=== PATIENT | male | born 1970 | race Two or more races ===

== ENCOUNTER 2025-07-04 20:49 | Inpatient (IN) | payer MEDICAID, OTHER ==
[~2025-07-04] VITALS: Ht 157.5 cm; Wt 69.2 kg
[2025-07-04 22:08] LABS: Hemoglobin 13.2 g/dL (13.5-17.5); Mean Corpuscular Hemoglobin 22.5 pg (28.0-32.0); Nucleated Red Blood Cells % 0.3 %
[2025-07-04 22:09] LABS: Hematocrit 38.5 % (41.0-53.0); Mean Corpuscular Volume 65.8 fL (80.0-100.0)
[2025-07-04 22:10] LABS: Chloride 105 mmol/L (98-107); Potassium 3.7 mmol/L (3.5-5.1); Sodium 141 mmol/L (136-145)
[2025-07-04 22:11] LABS: Anion Gap 11 (5-15); Carbon Dioxide 25 mmol/L (20-31)
[2025-07-04 22:12] LABS: Calcium 9.1 mg/dL (8.7-10.4)
[2025-07-04 22:16] LABS: BUN/Creatinine Ratio 19.3 (10.0-20.0); Blood Urea Nitrogen 16 mg/dL (9-23)
--- NOTE | 2025-07-04 22:17 | DVH ---
EXAM: CT HEAD WITHOUT CONTRAST INDICATION: New onset worsening headache TECHNIQUE: CT of the head without intravenous contrast. Radiation Dose Information: CT Dose: CTDI volume is 52.21 mGy. Dose-length product is 924.58 mGy*cm The dose indicators for CT are the volume Computed Tomography (CT) Dose Index (CTDIvol) and the Dose Length Product (DLP), and are measured in units of mGy and mGy-cm, respectively. These indicators are not patient dose, but values generated from the CT scanner acquisition factors. The report includes radiation exposure data for exposures received during this examination. COMPARISON: None FINDINGS: There is no evidence of acute intracranial hemorrhage, extra-axial collection, mass effect, midline s hift, herniation or hydrocephalus. The ventricles, sulci and cisterns are age appropriate. The miller-white differentiation is intact. The visualized paranasal sinuses and mastoid air cells are clear. The surrounding soft tissues and osseous structures are unremarkable. IMPRESSION: 1. No acute intracranial abnormality.
[2025-07-04 22:21] LABS: Glucose 145 mg/dL (74-106)
[2025-07-04] MEDS: SODIUM CHLORIDE 0.9% 1,000 ML IV ONE (22:45)
[2025-07-04] MEDS: KETOROLAC TROMETH 30 MG/ML 1ML VIAL IV ONE (22:45)
[2025-07-04] MEDS: MECLIZINE HCL 25 MG TAB PO ONE (22:45)
[2025-07-04] MEDS: METOCLOPRAMIDE HCL 5MG/ml INJ 2ml VIAL IV ONE (22:45)
--- NOTE | 2025-07-04 22:51 | ED.PDOC ---
HPI (NEURO) HPI Comments 54-year-old Citizen Of [place]-speaking male who presents for chief complaint of headache, with the associated blurry vision and dizziness. Patient reports on having headache for 1 month, with a additional onset of blurry vision and dizziness over the past week. Endorses on unprovoked and atraumatic onset. Denial of any speech changes, facial droop, or further associated symptoms or modifying factors at this time. REVIEW OF SYSTEMS: General: No fever, no chills, HEENT: Blurry vision. No neck pain. Cardiac: No chest pain. No palpitations. Lungs: No shortness of breath, GI: No abdominal pain, no vomiting Musculoskeletal: No joint pain , no back pain Skin: No rash, no wound Neuro: Dizziness. Headache. No weakness PHYSICAL EXAM: General: Awake, alert and oriented. No acute distress. Patient smiles and laughs during evaluation. Skin: Skin in warm, dry and intact without rashes or lesions. HEENT: The head is normocephalic and atraumatic. Conjunctivae are clear without exudates or hemorrhage. Sclera is non-icteric. Intact. PERRLA. Neck: Normal range of motion. No JVD. Cardiac: Regular rate Respiratory: No signs of respiratory distress. No Stridor. Extremities: Upper and lower extremities are atraumatic in appearance without deformity. Neurological: The patient is awake, alert and oriented to person, place, and time with normal speech. Speech is clear. There is no facial asymmetry. Patient has difficulty balancing on each leg, individually. Normal [id number] test. Normal gait. + Romberg Psychiatric: Appropriate mood and affect. Good judgement and insight. Chief Complaint: Headache Time Seen by MD: 21:01 Reviewed Notes: Nurses Notes, Medications, Allergies Information Source: Patient Mode of Arrival: Ambulatory Past Medical History PAST MEDICAL HISTORY: Denies Surgical History: Denies all surgeries Social History Smoker: Non-Smoker Alcohol: Denies ETOH Use Drugs: Denies Drug Use Lives In: Home Was a procedure done? Was a procedure done?: No Differential Diagnosis (SZ) Headache: Cluster, Migraine, CVA, Epidural Hemorrhage, Intracerebral Hemorrhage, Subarachnoid Hemorrhage, Subdural Hemorrhage, Meningitis, Sinusitis X-Ray, Labs, Meds, VS Vital Signs Date Time Temp Pulse Resp B/P (MAP) Pulse Ox O2 Delivery O2 Flow Rate FiO2 07/04/25 20:51 98.2 80 14 123/76 98 98.2 Lab Test 07/05/25 01:37 07/04/25 22:40 07/04/25 21:49 Range/Units White Blood Count 7.7 8.6 4.4-10.8 10^3/uL Red Blood Count 5.56 5.85 4.5-5.90 10^6/uL Hemoglobin 12.2 L 13.2 L 13.5-17.5 g/dL Hematocrit 37.2 L 38.5 L 41.0-53.0 % Mean Corpuscular Volume 66.9 L 65.8 L 80.0-100.0 fL Mean Corpuscular Hemoglobin 21.9 L 22.5 L 28.0-32.0 pg Mean Corpuscular Hemoglobin Concent 32.7 34.2 32.0-36.0 g/dL Red Cell Distribution Width 15.8 H 15.5 H 11.8-14.3 % Platelet Count 299 335 140-450 10^3/uL Mean Platelet Volume 7.9 7.7 6.9-10.8 fL Neutrophils (%) (Auto) 61.5 63.5 37.0-80.0 % Lymphocytes (%) (Auto) 28.2 26.6 10.0-50.0 % Monocytes (%) (Auto) 7.7 6.6 0.0-12.0 % Eosinophils (%) (Auto) 2.0 2.4 0.0-7.0 % Basophils (%) (Auto) 0.6 0.9 0.0-2.0 % Neutrophils # (Auto) 4.7 5.5 1.6-8.6 10 ^3/uL Lymphocytes # (Auto) 2.2 2.3 0.4-5.4 10 ^3/uL Monocytes # (Auto) 0.6 0.6 0-1.3 10 ^3/uL Eosinophils # (Auto) 0.2 0.2 0-0.8 10 ^3/uL Basophils # (Auto) 0 0.1 0-0.2 10 ^3/uL Nucleated Red Blood Cells 0.1 0.3 % Haptoglobin 62 29-370 mg/dL Prothrombin Time 10.3 9.3-11.8 sec Prothrombin Time INR 0.97 0.9-1.15 Activated Partial Thromboplast Time 23.8 L 24.5-34.5 SEC Sodium Level 140 141 136-145 mmol/L Potassium Level 3.7 3.7 3.5-5.1 mmol/L Chloride Level 109 H 105 98-107 mmol/L Carbon Dioxide Level 23 25 20-31 mmol/L Anion Gap 8 11 5-15 Blood Urea Nitrogen 16 16 9-23 mg/dL Creatinine 0.74 0.83 0.700-1.30 mg/dL Glomerular Filtration Rate Calc 109 105 >90 mL/min BUN/Creatinine Ratio 21.6 H 19.3 10.0-20.0 Serum Glucose 109 H 145 H 74-106 mg/dL Lactic Acid Level 0.9 0.4-2.0 mmol/L Calcium Level 8.4 L 9.1 8.7-10.4 mg/dL Ferritin 136.2 22-322 ng/mL Vitamin B12 Level > 4000 H 211-911 pg/mL Vitamin D 25-Hydroxy 40.1 30.0-100 ng/mL Folic Acid 13.92 >5.38 ng/mL Phosphorus Level 2.4 2.4-5.1 mg/dL Total Bilirubin 0.6 0.2-1.0 mg/dL Direct Bilirubin 0.2 <0.3 mg/dL Aspartate Amino Transferase (AST) 32 13-40 U/L Alanine Aminotransferase (ALT) 41 H 7-40 U/L Alkaline Phosphatase 65 46-116 U/L Troponin I High Sensitivity < 3 L < 3 L </=54 ng/L C-Reactive Protein High Sensitivity 0.06 <1.0 mg/dL Total Protein 7.5 5.7-8.2 g/dL Albumin 4.4 3.2-4.8 g/dL Triglycerides Level 407 H < 150 mg/dL Cholesterol Level 141 < 200 mg/dL LDL Cholesterol < 100 mg/dL HDL Cholesterol 35 L 40-59 mg/dL Lipase 53 12-53 U/L Platelet Estimate Adequate Hypochromasia (manual) Moderate Microcytosis Marked Hemoglobin A1c 5.5 <5.7 % A1C Iron Level 46 L 65-175 ug/dL Total Iron Binding Capacity 292 250-425 ug/dL Percent Iron Saturation 15.8 L 20-55 % Lactate Dehydrogenase 230 120-246 U/L [facility] [id number] [facility] [address] Ph: [phone] DIAGNOSTIC IMAGING Diagnostic Imaging Report : [id number] Signed PATIENT: LISA SHARP ACCT: [id number] UNIT: [id number] : 1970 LOC: ER ROOM / BED: / AGE / SEX: 54 / M ADM STATUS: REG ER SERVICE 34 ORDERING PHYSICIAN: DMITRY RAI MD PROCEDURE(s): HWOCT - HEAD WITHOUT CONTRAST REASON: New onset worsening headache ORDER NUMBER(s): [id number], ACCESSION NUMBER(s): [id number] EXAM: CT HEAD WITHOUT CONTRAST INDICATION: New onset worsening headache TECHNIQUE: CT of the head without intravenous contrast. Radiation Dose Information: CT Dose: CTDI volume is 52.21 mGy. Dose-length product is 924.58 mGy*cm The dose indicators for CT are the volume Computed Tomography (CT) Dose Index (CTDIvol) and the Dose Length Product (DLP), and are measured in units of mGy and mGy-cm, respectively. These indicators are not patient dose, but values generated from the CT scanner acquisition factors. The report includes radiation exposure data for exposures received during this examination. COMPARISON: None FINDINGS: There is no evidence of acute intracranial hemorrhage, extra-axial collection, mass effect, midline shift, herniation or hydrocephalus. The ventricles, sulci and cisterns are age appropriate. The miller-white differentiation is intact. The visualized paranasal sinuses and mastoid air cells are clear. The surrounding soft tissues and osseous structures are unremarkable. IMPRESSION: 1. No acute intracranial abnormality. ATED BY: ZANDER SHUKLA MD DICTATED DATE/TIME: 07/04/252213 SIGNED BY: ZANDER SHUKLA MD SIGNED DATE/TIME: 07/04/252213 CC: Time of 1ST Reevaluation: 00:44 Reevaluation 1ST: Unchanged Patient Education/Counseling: Other Family Education/Counseling: No Family Present Departure 1 Departure Time of Disposition: 00:44 Impression: Primary Impression: Headache Additional Impression: Dizziness Disposition: ADMITTED INPATIENT Condition: Stable e-Prescriptions Ibuprofen (Ibuprofen) 600 Mg Tab 1 TAB PO TID PRN, #15 TAB Prov: DMITRY RAI MD 07/05/25 Acetaminophen (Acetaminophen Er) 650 Mg Tab 650 MG PO TIDPRN PRN, #15 TAB Prov: DMITRY RAI MD 07/05/25 Discharged With: Self Comments Patient admitted to hospitalist service for further treatment, evaluation and monitoring. Critical Care Note Critical Care Time?: No Stability Stability form required: No Heart Score Heart Score: Heart Score Response (Comments) Value History N/A 0 EKG N/A 0 Age N/A 0 Risk Factors N/A 0 Troponin N/A 0 Total 0 I personally scribed for DMITRY RAI MD ([email or web address]) on 07/04/25 at 22:51. Electronically submitted by Theodore Jarvis ([email or web address]). I personally scribed for DMITRY RAI MD ([email or web address]) on 07/05/25 at 05:41. Electronically submitted by Theodore Jarvis ([email or web address]). DMITRY RAI MD Jul 04, 2025 22:51
[2025-07-05] MEDS ORDERED: IBUP-1454 PO (00:45)
[2025-07-05] MEDS ORDERED: ACET650T12 PO (00:45)
[2025-07-05 01:37] LABS: Albumin 4.4 g/dL (3.2-4.8); Alkaline Phosphatase 65 U/L (46-116); Bilirubin, Direct 0.2 mg/dL (<0.3); Cholesterol 141 mg/dL (< 200); Total Protein 7.5 g/dL (5.7-8.2)
[2025-07-05 01:37] LABS: Total Iron Binding Capacity 292.0 ug/dL (250-425)
[2025-07-05 01:38] LABS: Bilirubin, Total 0.6 mg/dL (0.2-1.0)
[2025-07-05 01:39] LABS: Iron 46.0 ug/dL (65-175)
[2025-07-05 01:40] LABS: Alanine Aminotransferase 41 U/L (7-40); HDL Cholesterol 35 mg/dL (40-59); Triglycerides 407 mg/dL (< 150)
[2025-07-05] MEDS ORDERED: ONDANSETRON HCL 4 MG/2 ML VIAL IV PRN (01:45)
[2025-07-05] MEDS ORDERED: MORPHINE SULFATE INJ 2 MG/ml SYRG IV PRN (01:45)
[2025-07-05] MEDS: ENOXAPARIN SOD 40 MG/0.4 ML SYRINGE SC SCH (01:45)
[2025-07-05] MEDS ORDERED: ACETAMINOPHEN 325 MG TAB PO PRN ×2 (01:45→09:00)
[2025-07-05 01:50] LABS: Lipase 53 U/L (12-53)
[2025-07-05 02:06] LABS: Hemoglobin 12.2 g/dL (13.5-17.5); Nucleated Red Blood Cells % 0.1 %
[2025-07-05 02:08] LABS: Hematocrit 37.2 % (41.0-53.0); Mean Corpuscular Hemoglobin 21.9 pg (28.0-32.0); Mean Corpuscular Volume 66.9 fL (80.0-100.0)
[2025-07-05 02:09] LABS: Potassium 3.7 mmol/L (3.5-5.1); Sodium 140 mmol/L (136-145)
[2025-07-05 02:10] LABS: Anion Gap 8 (5-15); Carbon Dioxide 23 mmol/L (20-31); Chloride 109 mmol/L (98-107)
[2025-07-05 02:11] LABS: Calcium 8.4 mg/dL (8.7-10.4); INR 0.97 (0.9-1.15); Partial Thromboplastin Time 23.8 SEC (24.5-34.5); Prothrombin Time 10.3 sec (9.3-11.8)
[2025-07-05 02:15] LABS: BUN/Creatinine Ratio 21.6 (10.0-20.0); Blood Urea Nitrogen 16 mg/dL (9-23)
[2025-07-05 02:16] LABS: Glucose 109 mg/dL (74-106)
[2025-07-05 02:18] LABS: Ferritin 136.2 ng/mL (22-322)
[2025-07-05] MEDS: ATORVASTATIN 20 MG TAB PO ONE (02:22)
--- NOTE | 2025-07-05 02:24 | DVHHPRES ---
History of Present Illness Resident Creating Document: LUCIOCarmenFATOU RESIDENT History of Present Illness This is a 54-year-old male with no significant past medical history, presented to ER with chief complain of headache, associated with dizziness, blurry vision, nausea, vomiting. He reports headache began gradually, is located in the occipital region, described as pressure-like pain, with a severity of 8/10. The pain is intermittent, radiating to right ear and associated with tingling sensation of the right side of face. He also complained of associated nausea, vomiting, he vomited once yesterday, vomitus contained food contents, no blood in vomitus. He also complained of associated dizziness and loss of balance, associated with fall 1 week ago. During that fall he hit his head. He also complained of blurred vision in bilateral eyes. He denies tearing, pain, redness of eyes, aura, photophobia, fever, chills, neck pain. Denies any sick contacts or recent travel. PMHx: Fatty liver disease PSHx: No significant surgical history Family history: Diabetes mellitus in brother Social history: Denies smoking, alcohol, recreational drug use. Lives in home with family. Next of kin Home medication: As needed Tylenol for headache Allergic history: No known allergies Hepatobiliary: Other (Fatty liver disease) Smoke: No ALCOHOL: none Drugs: None Lives: with Family Domestic Violence: Neg Review of Systems Eyes: Vision change Cardiovascular: Lt Headedness Gastrointestinal: Nausea, Vomiting Neurological: Other (Dizziness, loss of balance) Allergies: Coded Allergies: NO KNOWN ALLERGIES (Unverified , 07/04/25) Exam Vital Signs Vital Signs Date Time Temp Pulse Resp B/P (MAP) Pulse Ox O2 Delivery O2 Flow Rate FiO2 07/04/25 20:51 98.2 80 14 123/76 98 98.2 Exam Patient lying in bed, in no acute distress General: Lucid, afebrile, mucosae are moist Cardiovascular: Normal S1 and S2. No murmurs, gallops or rubs Respiratory: Normal ventilation mechanics. Clear lung sounds on auscultation Abdomen: Soft, nontender, no organomegaly, normal bowel sounds MSK/skin: Mobilizes 4 limbs. Skin is dry and warm Neurological: Oriented in 3 spheres. No motor no sensitive deficits. Pupils are isocoric and reactive. Sensitize Romberg positive General Appearance: Alert, Oriented X3, Cooperative HEENT: Atraumatic, PERRLA Respiratory: Clear to auscultation, Normal air movement Cardiovascular: Regular rate, Normal S1, Normal S2, No murmurs Abdominal: Normal bowel sounds, Soft, No tenderness, No hepatospenomegaly Extremities: No clubbing, No cyanosis, No edema Skin: No rashes, No breakdown Neuro: Normal gait, Normal speech, Strength at 5/5 X4 ext, Normal tone, Sensation intact, Cranial nerves 3-12 NL, Reflexes 2+, Other (Romberg sign positive) Psych/Mental Status: Mental status NL, Mood NL Labs/Xrays Labs Test 07/05/25 01:37 07/04/25 22:40 07/04/25 21:49 Range/Units Phosphorus Level 2.4 2.4-5.1 mg/dL Total Bilirubin 0.6 0.2-1.0 mg/dL Direct Bilirubin 0.2 <0.3 mg/dL Aspartate Amino Transferase (AST) 32 13-40 U/L Alanine Aminotransferase (ALT) 41 H 7-40 U/L Alkaline Phosphatase 65 46-116 U/L Troponin I High Sensitivity < 3 L </=54 ng/L C-Reactive Protein High Sensitivity 0.06 <1.0 mg/dL Total Protein 7.5 5.7-8.2 g/dL Albumin 4.4 3.2-4.8 g/dL Triglycerides Level 407 H < 150 mg/dL Cholesterol Level 141 < 200 mg/dL LDL Cholesterol < 100 mg/dL HDL Cholesterol 35 L 40-59 mg/dL Lipase 53 12-53 U/L White Blood Count 8.6 4.4-10.8 10^3/uL Red Blood Count 5.85 4.5-5.90 10^6/uL Hemoglobin 13.2 L 13.5-17.5 g/dL Hematocrit 38.5 L 41.0-53.0 % Mean Corpuscular Volume 65.8 L 80.0-100.0 fL Mean Corpuscular Hemoglobin 22.5 L 28.0-32.0 pg Mean Corpuscular Hemoglobin Concent 34.2 32.0-36.0 g/dL Red Cell Distribution Width 15.5 H 11.8-14.3 % Platelet Count 335 140-450 10^3/uL Mean Platelet Volume 7.7 6.9-10.8 fL Neutrophils (%) (Auto) 63.5 37.0-80.0 % Lymphocytes (%) (Auto) 26.6 10.0-50.0 % Monocytes (%) (Auto) 6.6 0.0-12.0 % Eosinophils (%) (Auto) 2.4 0.0-7.0 % Basophils (%) (Auto) 0.9 0.0-2.0 % Neutrophils # (Auto) 5.5 1.6-8.6 10 ^3/uL Lymphocytes # (Auto) 2.3 0.4-5.4 10 ^3/uL Monocytes # (Auto) 0.6 0-1.3 10 ^3/uL Eosinophils # (Auto) 0.2 0-0.8 10 ^3/uL Basophils # (Auto) 0.1 0-0.2 10 ^3/uL Nucleated Red Blood Cells 0.3 % Platelet Estimate Adequate Hypochromasia (manual) Moderate Microcytosis Marked Sodium Level 141 136-145 mmol/L Potassium Level 3.7 3.5-5.1 mmol/L Chloride Level 105 98-107 mmol/L Carbon Dioxide Level 25 20-31 mmol/L Anion Gap 11 5-15 Blood Urea Nitrogen 16 9-23 mg/dL Creatinine 0.83 0.700-1.30 mg/dL Glomerular Filtration Rate Calc 105 >90 mL/min BUN/Creatinine Ratio 19.3 10.0-20.0 Serum Glucose 145 H 74-106 mg/dL Hemoglobin A1c 5.5 <5.7 % A1C Calcium Level 9.1 8.7-10.4 mg/dL Iron Level 46 L 65-175 ug/dL Total Iron Binding Capacity 292 250-425 ug/dL Percent Iron Saturation 15.8 L 20-55 % Lactate Dehydrogenase 230 120-246 U/L SEPSIS Sepsis Screen Date sepsis recognized/suspect: Jul 04, 2025 Time Sepsis recognized/suspect: 2053 Recent Procedure: No On Antibiotic Therapy: No Respiratory Rate >20: No Heart Rate >90: No Temp<36 C (96.8 F) or >38.3 C: No SBP <90 or MAP <65 mmHG: No New Acute Mental Status Change: No Is the patient on CPAP, BIPAP,: No Physician Orders Electrocardigram (07/04/25 21:35) Head Without Contrast (07/04/25 21:35) Electrocardigram (07/04/25 22:35) Electrocardigram (07/05/25 00:35) Ferritin (07/05/25 00:59) Haptoglobin (07/05/25 00:59) Folate (Folic Acid) (07/05/25 00:59) Vitamin B12 (07/05/25 00:59) PTPTT (07/05/25 00:59) Drug Screen (07/05/25 00:59) Vitamin D, 25-Hydroxy (07/05/25 00:59) Lactic Acid W/ Reflex Order (07/05/25 01:14) Complete Blood Count (07/05/25 04:00) Basic Metabolic Panel (07/05/25 04:00) Admit (07/05/25 01:42) Allergies (07/05/25 01:42) Code Status (07/05/25 01:42) Acetaminophen Tablet (Tylenol Tablet) (07/05/25 01:45) Ondansetron Hcl (Zofran) (07/05/25 01:45) Multiple Vitamin Tablet (Mvi Tab) (07/05/25 10:00) Morphine Sulfate Injection (07/05/25 01:45) Lovenox 40mg (07/05/25 01:45) Oxygen By Nasal Cannula (07/05/25 01:42) Stat Ekg For Chest Pain (07/05/25 01:42) Notify Md Of Changes From Base (07/05/25 01:42) Metal Template Maker For 24 Hours (07/05/25 01:42) Emergency Dysrhythmia Protocol (07/05/25 01:42) Rhythm Strips Once Every Shift (07/05/25 01:42) Electrocardigram (07/05/25 01:42) Electrocardigram (07/05/25 02:42) Electrocardigram (07/05/25 04:42) Vital Signs Date Time Temp Pulse Resp B/P (MAP) Pulse Ox O2 Delivery O2 Flow Rate FiO2 07/04/25 20:51 98.2 80 14 123/76 98 98.2 Laboratory Tests Test 07/04/25 21:49 07/05/25 01:37 White Blood Count 8.6 10^3/uL (4.4-10.8) Lactic Acid Level Pending Medications Medications Dose Ordered Sig/Deshawn Route Start Time Stop Time Status Last Admin Dose Admin Ketorolac Tromethamine 30 mg ONCE ONCE IV 07/04/25 22:45 07/04/25 22:46 DC 07/04/25 22:45 30 MG Meclizine HCl 50 mg ONCE ONCE PO 07/04/25 22:45 07/04/25 22:46 DC 07/04/25 22:45 50 MG Metoclopramide HCl 10 mg ONCE ONCE IV 07/04/25 22:45 07/04/25 22:46 DC 07/04/25 22:45 10 MG Sodium Chloride 1,000 ml @ 1,000 mls/hr Q1H ONCE IV 07/04/25 22:45 07/04/25 23:44 DC 07/04/25 22:45 1,000 MLS/HR Assessment/Plan Assessment/Plan TIA Hemorrhagic stroke ruled out CT head revealed no acute abnormality EKG ordered Echocardiogram, Doppler ultrasound carotid ordered Monitor on telemetry P.o. aspirin 81 mg, atorvastatin 40 mg Questionable Vestibular neuritis Meclizine 50mg BID PRN Metabolic syndrome Hypertriglyceridemia Low HDL 3 on 5 criteria met with elevated triglycerides, low HDL, central fat position Advised lifestyle modifications Iron-deficiency anemia Hemoglobin 13.2 Iron panel, ferritin revealed iron deficiency pattern Stool occult blood ordered History of fatty liver disease ALT elevated DIET: Regular DVT PROPHYLAXIS: Lovenox CODE STATUS: Goals of care discussed with patient at bedside for more than 39 minutes. Full code DISPOSITION: Med/surge Patient's status and plan discussed with the patient. Case discussed with Dr. Mcwilliams. Plan discussed with: Patient, Daughter, Other (Nurses) My Orders Orders - FATOU POLANCO RESIDENT Procedure Category Date Status Time Ferritin LAB 07/05/25 In Process 00:59 Haptoglobin LAB 07/05/25 In Process 00:59 Folate (Folic Acid) LAB 07/05/25 In Process 00:59 Vitamin B12 LAB 07/05/25 In Process 00:59 PTPTT LAB 07/05/25 In Process 00:59 Drug Screen LAB 07/05/25 Logged 00:59 Vitamin D, 25-Hydroxy LAB 07/05/25 In Process 00:59 Complete Blood Count LAB 07/05/25 Transmitted 04:00 Basic Metabolic Panel LAB 07/05/25 Transmitted 04:00 Admit ADMIT 07/05/25 Transmitted 01:42 Allergies CATRACHO 07/05/25 Transmitted 01:42 Code Status CODE 07/05/25 Transmitted 01:42 Acetaminophen Tablet [facility] 07/05/25 Transmitted (Tylenol Tablet) 01:45 Ondansetron Hcl [facility] 07/05/25 Transmitted (Zofran) 01:45 Multiple Vitamin [facility] 07/05/25 Transmitted Tablet (Mvi Tab) 10:00 Morphine Sulfate [facility] 07/05/25 Transmitted Injection 01:45 Lovenox 40mg [facility] 07/05/25 Transmitted 01:45 Oxygen By Nasal RT 07/05/25 Transmitted Cannula 01:42 Stat Ekg For Chest [facility] 07/05/25 Transmitted Pain 01:42 Notify Md Of Changes [facility] 07/05/25 Transmitted From Base 01:42 Metal Template Maker For [facility] 07/05/25 Transmitted 24 Hours 01:42 Emergency Dysrhythmia [facility] 07/05/25 Transmitted Protocol 01:42 Rhythm Strips Once [facility] 07/05/25 Transmitted Every Shift 01:42 Electrocardigram EKG 07/05/25 Transmitted 01:42 Electrocardigram EKG 07/05/25 Transmitted 02:42 Electrocardigram EKG 07/05/25 Transmitted 04:42 Date of Service: Jul 05, 2025 Billing Provider: LASHAY MCWILLIAMS MD Common Visit Codes: [id number] INP/OBS CARE (HIGH) Secondary Visit Codes: [id number]-[id number] CARE PLAN 30 MINUTES FATOU POLANCO RESIDENT Jul 05, 2025 02:24 ACDEN REYES RESIDENT Jul 05, 2025 04:35
[2025-07-05 02:27] VITALS: BP 121/80; PULSE 73; RESP 14; TEMP 98.7; O2SAT 98
[2025-07-05] MEDS ORDERED: MECLIZINE HCL 25 MG TAB PO PRN (02:30)
[2025-07-05 07:07] LABS: Nucleated Red Blood Cells % 0.1 %
[2025-07-05 07:09] LABS: Hematocrit 38.6 % (41.0-53.0); Hemoglobin 12.7 g/dL (13.5-17.5); Mean Corpuscular Hemoglobin 21.9 pg (28.0-32.0); Mean Corpuscular Volume 66.7 fL (80.0-100.0)
[2025-07-05 07:21] LABS: Anion Gap 8 (5-15); Carbon Dioxide 23 mmol/L (20-31); Potassium 3.7 mmol/L (3.5-5.1); Sodium 141 mmol/L (136-145)
[2025-07-05 07:27] LABS: BUN/Creatinine Ratio 16.2 (10.0-20.0); Blood Urea Nitrogen 12 mg/dL (9-23)
[2025-07-05 07:38] LABS: Calcium 8.6 mg/dL (8.7-10.4); Chloride 110 mmol/L (98-107); Glucose 111 mg/dL (74-106)
--- NOTE | 2025-07-05 08:31 | DVH ---
Carotid Duplex Date: 07/05/2025 07:38 AM Clinical History: CVA Comparison: None Technique: Duplex Doppler evaluation of the extracranial carotid and vertebral arteries including col or Doppler and spectral/pulsed waveform analysis was performed. Findings: Velocities and ratios within normal limits IMPRESSION: No hemodynamically significant stenosis noted in the right carotid system. No hemodynamically significant stenosis noted in the left carotid system. Reference: Radiology 2003; [id number]
[2025-07-05] MEDS ORDERED: MULTIPLE VITAMIN TAB PO SCH (10:00)
--- NOTE | 2025-07-05 12:47 | DVHDSRES ---
Discharge Summary Date of Admission Resident Creating Document: MATT VERDUGO RESIDENT Jul 05, 2025 at 01:42 Date of Discharge: Jul 05, 2025 Admitting Diagnosis Headache Labs/Diagnostic Data: Laboratory Results Test 07/05/25 06:50 07/05/25 01:37 07/04/25 22:40 07/04/25 21:49 White Blood Count 6.7 10^3/uL (4.4-10.8) Red Blood Count 5.78 10^6/uL (4.5-5.90) Hemoglobin 12.7 g/dL (13.5-17.5) Hematocrit 38.6 % (41.0-53.0) Mean Corpuscular Volume 66.7 fL (80.0-100.0) Mean Corpuscular Hemoglobin 21.9 pg (28.0-32.0) Mean Corpuscular Hemoglobin Concent 32.9 g/dL (32.0-36.0) Red Cell Distribution Width 15.6 % (11.8-14.3) Platelet Count 303 10^3/uL (140-450) Mean Platelet Volume 7.7 fL (6.9-10.8) Neutrophils (%) (Auto) 67.4 % (37.0-80.0) Lymphocytes (%) (Auto) 24.5 % (10.0-50.0) Monocytes (%) (Auto) 6.2 % (0.0-12.0) Eosinophils (%) (Auto) 1.3 % (0.0-7.0) Basophils (%) (Auto) 0.6 % (0.0-2.0) Neutrophils # (Auto) 4.5 10 ^3/uL (1.6-8.6) Lymphocytes # (Auto) 1.6 10 ^3/uL (0.4-5.4) Monocytes # (Auto) 0.4 10 ^3/uL (0-1.3) Eosinophils # (Auto) 0.1 10 ^3/uL (0-0.8) Basophils # (Auto) 0 10 ^3/uL (0-0.2) Nucleated Red Blood Cells 0.1 % Sodium Level 141 mmol/L (136-145) Potassium Level 3.7 mmol/L (3.5-5.1) Chloride Level 110 mmol/L (98-107) Carbon Dioxide Level 23 mmol/L (20-31) Anion Gap 8 (5-15) Blood Urea Nitrogen 12 mg/dL (9-23) Creatinine 0.74 mg/dL (0.700-1.30) Glomerular Filtration Rate Calc 109 mL/min (>90) BUN/Creatinine Ratio 16.2 (10.0-20.0) Serum Glucose 111 mg/dL (74-106) Calcium Level 8.6 mg/dL (8.7-10.4) Prothrombin Time 10.3 sec (9.3-11.8) Prothrombin Time INR 0.97 (0.9-1.15) Activated Partial Thromboplast Time 23.8 SEC (24.5-34.5) Lactic Acid Level 0.9 mmol/L (0.4-2.0) Ferritin 136.2 ng/mL (22-322) Vitamin B12 Level > 4000 pg/mL (211-911) Vitamin D 25-Hydroxy 40.1 ng/mL (30.0-100) Folic Acid 13.92 ng/mL (>5.38) Phosphorus Level 2.4 mg/dL (2.4-5.1) Total Bilirubin 0.6 mg/dL (0.2-1.0) Direct Bilirubin 0.2 mg/dL (<0.3) Aspartate Amino Transferase (AST) 32 U/L (13-40) Alanine Aminotransferase (ALT) 41 U/L (7-40) Alkaline Phosphatase 65 U/L (46-116) Troponin I High Sensitivity < 3 ng/L (</=54) C-Reactive Protein High Sensitivity 0.06 mg/dL (<1.0) Total Protein 7.5 g/dL (5.7-8.2) Albumin 4.4 g/dL (3.2-4.8) Triglycerides Level 407 mg/dL (< 150) Cholesterol Level 141 mg/dL (< 200) LDL Cholesterol mg/dL (< 100) HDL Cholesterol 35 mg/dL (40-59) Lipase 53 U/L (12-53) Platelet Estimate Adequate Hypochromasia (manual) Moderate Microcytosis Marked Hemoglobin A1c 5.5 % A1C (<5.7) Iron Level 46 ug/dL (65-175) Total Iron Binding Capacity 292 ug/dL (250-425) Percent Iron Saturation 15.8 % (20-55) Lactate Dehydrogenase 230 U/L (120-246) Other Laboratory Tests 07/05/25 06:50 Brief Hx & Hospital Course: This is a Barbadian-speaking 54-year-old male with a past medical history of fatty liver disease and no significant surgical history presented to the emergency department with a chief complaint of occipital headache described as pressure- like, rated 8/10 in severity. The headache was intermittent, radiating to the right ear, and associated with right facial tingling. He also reported dizziness, blurry vision, nausea, and a single episode of non-bloody emesis. Notably, he experienced a fall one week prior with head trauma. He denied fever, chills, neck pain, photophobia, or recent travel. On examination, the patient was alert, oriented, and in no acute distress. Neurological exam was largely unremarkable except for a positive Romberg sign. CT head showed no acute abnormalities, ruling out hemorrhagic stroke. Workup for transient ischemic attack (TIA) was initiated, including EKG, echocardiogram, and carotid Doppler. Carotid Doppler shows no hemodynamically significant stenosis noted in the left carotid system and right carotid system. He was started on aspirin 81 mg and atorvastatin 40 mg. Vestibular neuritis was considered due to persistent dizziness and imbalance; meclizine was prescribed as needed. Laboratory studies revealed metabolic syndrome (elevated triglycerides, low HDL, central adiposity) and iron-deficiency anemia (Hb 13.2, iron panel consistent with deficiency). Stool occult blood testing was ordered. Liver enzymes were elevated, consistent with known fatty liver disease. The patient was placed on telemetry monitoring, received DVT prophylaxis with Lovenox, and was maintained on a regular diet. Goals of care were discussed extensively, and he remains Full Code. He was planned for admission for further evaluation and management, but left the hospital before being admitted. Exam Patient lying in bed, in no acute distress General Appearance: Alert, Oriented X3, Cooperative HEENT: Atraumatic, PERRLA Respiratory: Clear to auscultation, Normal air movement Cardiovascular: Regular rate, Normal S1, Normal S2, No murmurs Abdominal: Normal bowel sounds, Soft, No tenderness, No hepatospenomegaly Extremities: No clubbing, No cyanosis, No edema Skin: No rashes, No breakdown Neuro: Normal gait, Normal speech, Strength at 5/5 X4 ext, Normal tone, Sensation intact, Cranial nerves 3-12 NL, Reflexes 2+, Other (Romberg sign positive) Psych/Mental Status: Mental status NL, Mood NL Operations or Procedures PATIENT: LISA SHARP ACCT: [id number] UNIT: [id number] : 1970 LOC: OVERFLOW ROOM / BED: 1022-ER / A AGE / SEX: 54 / M ADM STATUS: ADM IN SERVICE 9 ORDERING PHYSICIAN: FATOU POLANCO PROCEDURE(s): CARCL - CAROTID DUPLX W COLOR DOP REASON: CVA ORDER NUMBER(s): [id number], ACCESSION NUMBER(s): [id number] Carotid Duplex Date: 07/05/2025 07:38 AM Clinical History: CVA Comparison: None Technique: Duplex Doppler evaluation of the extracranial carotid and vertebral arteries including color Doppler and spectral/pulsed waveform analysis was performed. Findings: Velocities and ratios within normal limits IMPRESSION: No hemodynamically significant stenosis noted in the right carotid system. No hemodynamically significant stenosis noted in the left carotid system. Reference: Radiology 2003; [id number] - PATIENT: LISA SHARP ACCT: [id number] UNIT: [id number] : 1970 LOC: ER ROOM / BED: / AGE / SEX: 54 / M ADM STATUS: REG ER SERVICE 34 ORDERING PHYSICIAN: DMITRY RAI MD PROCEDURE(s): HWOCT - HEAD WITHOUT CONTRAST REASON: New onset worsening headache ORDER NUMBER(s): [id number], ACCESSION NUMBER(s): [id number] EXAM: CT HEAD WITHOUT CONTRAST INDICATION: New onset worsening headache TECHNIQUE: CT of the head without intravenous contrast. Radiation Dose Information: CT Dose: CTDI volume is 52.21 mGy. Dose-length product is 924.58 mGy*cm The dose indicators for CT are the volume Computed Tomography (CT) Dose Index (CTDIvol) and the Dose Length Product (DLP), and are measured in units of mGy and mGy-cm, respectively. These indicators are not patient dose, but values generated from the CT scanner acquisition factors. The report includes radiation exposure data for exposures received during this examination. COMPARISON: None FINDINGS: There is no evidence of acute intracranial hemorrhage, extra-axial collection, mass effect, midline shift, herniation or hydrocephalus. The ventricles, sulci and cisterns are age appropriate. The miller-white differentiation is intact. The visualized paranasal sinuses and mastoid air cells are clear. The surrounding soft tissues and osseous structures are unremarkable. IMPRESSION: 1. No acute intracranial abnormality. Condition at Discharge: Stable Final Diagnosis/Problems List # Hemorrhagic stroke ruled out # Vestibular neuritis # Metabolic syndrome # Hypertriglyceridemia # Iron-deficiency anemia # History of fatty liver disease Discharge Disposition: Eloped Discharge Instruct/Medications Scheduled PRN Acetaminophen (Acetaminophen Er), 650 MG PO TIDPRN PRN Ibuprofen (Ibuprofen), 1 TAB PO TID PRN Discharge Statement: "Patient was advised to return to the ER or call 911 if any headaches, dizziness, shortness of breath, chest pain, abdominal pain, bleeding, fevers, or worsening of medical condition. Patient was counseled about treatment plan, medications, possible side effects, patientverbalized understanding. All questions were answered to the best of my ability. This discharge took greater then 30 minutes in planning, reviewing documentation, counseling the patient, and discussing with other team members." ASSESSMENT ASSESSMENT Assessment Date of Service: Jul 05, 2025 Billing Provider: SUBHA ABDI MD Common Visit Codes: 03340-LMR/OBS DISCH DAY >30min MATT VERDUGO Jul 05, 2025 12:47 SUBHA ABDI MD Jul 09, 2025 23:58
[2025-07-05] MEDS ORDERED: ATORVASTATIN 20 MG TAB PO SCH (22:00)
== END 2025-07-05 11:16 | disposition left against medical advice (07) | DRG 111 ==
LOC: ER 20:49 → OVERFLOW 07-05 01:42
PROVIDERS: ADMIT Internal Medicine Geriatric Medicine; ATTEND Internal Medicine Geriatric Medicine
DX: H81.21 Vestibular neuronitis, right ear (principal); E83.51 Hypocalcemia; D50.9 Iron deficiency anemia, unspecified; E78.1 Pure hyperglyceridemia; E88.810 Metabolic syndrome; Z53.29 Procedure and treatment not carried out because of patient's decision for other reasons; K76.0 Fatty (change of) liver, not elsewhere classified; Z83.3 Family history of diabetes mellitus; Z79.899 Other long term (current) drug therapy
CPT/HCPCS: 36415; 70450; 80048; 80061; 80076; 82306; 82607; 82728; 82746; 83010; 83036; 83540; 83550; 83605; 83615; 83690; 84100; 84484; 85025; 85610; 85730; 86141; 93886; 96361; 96374; 96375; G0378; J1885

== ENCOUNTER 2025-07-10 10:33 | Emergency (ER) | payer MEDICAID ==
[~2025-07-10] VITALS: Ht 157.5 cm; Wt 67.1 kg
[~2025-07-10 10:33] MED LIST: ACET650T12 PO; IBUP-1454 PO
--- NOTE | 2025-07-10 12:25 | ED.PDOC ---
HPI (NEURO) HPI Comments HPI: Jhonatan 54 y.o male presents to the ED for a chief complaint of a posterior headache associated with lightheadedness. Patient reports he was seen at this ED on 07/05/25 for same complaint, was admitted for higher level of care but eloped. Patient called his PCP shortly after eloping but states he was not able to be s een without the work up he had done at the ED. Patient now presents for all results but also states since last visit, symptoms continue to occur intermittently. Patient describes headache more of a tension/pressure sensation that presents after getting up from bed and at rest. Alleviating factors reported to be exercising, keeping busy and eating. He denies any new symptoms since previous visit, worsening headache, falls, or LOC. Patient left before being admitted. Initial Vitals BP: 114/75 HR: 68 RR: 18 O2: 96% RA Temp: 97.7 F Past Medical History: Denies Past Surgical History: Denies Social History: Denies ETOH, smoking, and drug use. Medications: Denies Allergies: Denies JHONATAN: headache: HPI: Poor Historian. Suboccipital tension. Only in the morning when he wakes up and resolves within 1 hours spontaneously. No dizziness with the ambulation and walking and m ovement of the head. No associated symptoms of nausea or vomiting. No focal deficits. No active headache at this time without any interventions. Past Medical History: Past Surgical History: REVIEW OF SYSTEMS: Patient is currently asymptomatic CONSTITUTIONAL: Denies acute: fever, diaphoresis, chills, generalized weakness. HEAD: Denies acute: , photophobia Eyes: Denies acute: Double vision, vision loss, eye pain, eye discharge. EARS: Denies acute: tinnitus, hearing loss, ear discharge, ear pain, THROAT: Denies acute: sore throat, swelling, difficulty swallowing , pain with swallowing, change in voice. NECK: Denies acute: neck pain, neck swelling, stiff neck. HEART: Denies acute : chest pain, palpitations, LUNGS: Denies acute: SOB, wheezing, cough, hemoptysis ABDOMEN: Denies acute: abdominal pain, Nausea, Vomiting, diarrhea, melena , hematemesis, hematochezia SKIN: Denies acute: rash, redness, lesions, itchiness. EXTREMITIES: Denies acute: calf pain, numbness, tingling, weakness, denies pain in extremity. Denies acute: Low back pain. Neuro: Denies acute: focal neurological deficit, motor or sensory focal neurological deficit, tremors, seizure like activity, confusion, dizziness, change in mental status, loss of bowel or bladder function, cauda equina like symptoms. : Denies acute: dysuria, hematuria, flank pain, increase in urinary frequency. PSYCH: Denies acute: hallucination, suicidal ideation, homicidal ideation. FEMALE: Denies acute: abnormal vaginal bleeding, foul odor, unusual discharge. PHYSICAL EXAM: General: ------no--acute distress, awake and alert. Head: normocephalic, atraumatic. Neck: supple, trachea is midline, no swelling. Throat: Normal phonation. Eyes:, no erythema, no purulent discharge, no proptosis, no icterus. Heart: regular rate, regular rhythm, no significant murmur appreciated. Lungs: no apparent respiratory distress, Able to speak in full sentences. No wheezing, no rhonchi, no crackles. No stridors Clear to auscultation bilaterally. Abdomen: non tender to palpation, non distended, soft, no guarding, no rebound, + bowel sounds. Neuro: Awake, Alert, oriented to name, self, situation, follows commands GCS=15. Speech is normal. Skin: no petechia, no purpura, no cyanosis, non-pale, not jaundice. Lower extremities: --no - Pitting edema no deformity, no focal swelling, no calf TTP. Makes eye contact. moves all four extremities. Face: no apparent facial droop. Ambulating in the ED independently. PERRLA, EOM-I CN 2-12 are grossly intact, No nystagmus. No nuchal rigidity, Kernig's sign, Brudzinski's sign, no meningeal signs. ED COURSE: DISCLAIMER: This medical document was created using an electronic medical record system with voice recognition software and computerized dictation system. Although this document has been carefully reviewed, there might still be some phonetic and typographical errors. Occasional wrong-word or "sound-alike" substitutions may have occurred due to the inherent limitations of voice recognition software. These areas are purely typographical due to imperfections of the software programs and do not reflect any compromise in the patient's medical care. Please read the chart carefully and recognize, using context, where these substitutions have occurred. Chief Complaint: Headache Time Seen by MD: 12:10 Reviewed Notes: Allergies Information Source: Patient Mode of Arrival: Ambulatory Timing: Days Past Medical History PAST MEDICAL HISTORY: Denies Surgical History: Denies all surgeries Social History Smoker: Non-Smoker Alcohol: Denies ETOH Use Drugs: Denies Drug Use Lives In: Home Was a procedure done? Was a procedure done?: No Differential Diagnosis (SZ) Headache: Cluster, Migraine, Subdural Hemorrhage, Sinusitis X-Ray, Labs, Meds, VS Vital Signs Date Time Temp Pulse Resp B/P (MAP) Pulse Ox O2 Delivery O2 Flow Rate FiO2 07/10/25 10:34 97.7 68 18 114/75 96 97.7 [place] [address] Ph: [phone] DIAGNOSTIC IMAGING Diagnostic Imaging Report : [id number] Signed PATIENT: LISA SHARP ACCT: [id number] UNIT: [id number] : 1970 LOC: ER ROOM / BED: / AGE / SEX: 54 / M ADM STATUS: REG ER SERVICE 34 ORDERING PHYSICIAN: DMITRY RAI MD PROCEDURE(s): HWOCT - HEAD WITHOUT CONTRAST REASON: New onset worsening headache ORDER NUMBER(s): [id number], ACCESSION NUMBER(s): [id number] EXAM: CT HEAD WITHOUT CONTRAST INDICATION: New onset worsening headache TECHNIQUE: CT of the head without intravenous contrast. Radiation Dose Information: CT Dose: CTDI volume is 52.21 mGy. Dose-length product is 924.58 mGy*cm The dose indicators for CT are the volume Computed Tomography (CT) Dose Index (CTDIvol) and the Dose Length Product (DLP), and are measured in units of mGy and mGy-cm, respectively. These indicators are not patient dose, but values generated from the CT scanner acquisition factors. The report includes radiation exposure data for exposures received during this examination. COMPARISON: None FINDINGS: There is no evidence of acute intracranial hemorrhage, extra-axial collection, mass effect, midline shift, herniation or hydrocephalus. The ventricles, sulci and cisterns are age appropriate. The miller-white differentiation is intact. The visualized paranasal sinuses and mastoid air cells are clear. The surrounding soft tissues and osseous structures are unremarkable. IMPRESSION: 1. No acute intracranial abnormality. ATED BY: NAHOMI SHUKLA MD DICTATED DATE/TIME: 07/04/252213 SIGNED BY: NAHOMI SHUKLA MD SIGNED DATE/TIME: 07/04/252213 CC: [place] [address] Ph: [phone] DIAGNOSTIC IMAGING Diagnostic Imaging Report : [id number] Signed PATIENT: LISA SHARP ACCT: [id number] UNIT: [id number] : 1970 [facility]GE / SEX: 54 / M ADM STATUS: ADM IN SERVICE 9 ORDERING PHYSICIAN: FATOU POLANCO RESIDENT PROCEDURE(s): CARCL - CAROTID DUPLX W COLOR DOP REASON: CVA ORDER NUMBER(s): [id number], ACCESSION NUMBER(s): [id number] Carotid Duplex Date: 07/05/2025 07:38 AM Clinical History: CVA Comparison: None Technique: Duplex Doppler evaluation of the extracranial carotid and vertebral arteries including color Doppler and spectral/pulsed waveform analysis was performed. Findings: Velocities and ratios within normal limits IMPRESSION: No hemodynamically significant stenosis noted in the right carotid system. No hemodynamically significant stenosis noted in the left carotid system. Reference: Radiology 2003; [id number] ATED BY: NAHOMI SHUKLA MD DICTATED DATE/TIME: 07/05/25828 SIGNED BY: NAHOMI SHUKLA MD SIGNED DATE/TIME: 07/05/25828 CC: Time of 1ST Reevaluation: 12:18 Reevaluation 1ST: Unchanged Time of 2ND Reevaluation: 13:12 (Patient provided imaging results form visit on 07/05/25 and states he will pecan picker the remainer of his results (lab and other documentations) on Saturday at medical records office. ) Patient Education/Counseling: Diagnosis, Treatment Family Education/Counseling: Diagnosis, Treatment Departure 1 Departure Time of Disposition: 13:05 Impression: Primary Impression: Headache Disposition: HOME / SELF CARE / HOMELESS Condition: Stable Additional Instructions: Additional instructions: Please read all instructions provided in this packet carefully. You MUST follow-up with your primary care/family doctor in 1 to 2 days. If you are unable to see your primary care/family doctor, please return to our emergency room for re-assessment and re-evaluation in 1 to 2 days. Return to the emergency room here in our facility or to the nearest ER [facility] if your symptoms change or worsen. CONSULTATIONS: you MUST Follow-up for consultation as soon as possible with: -neurology in 1-2 days. Please call for appointment. You MUST call the consultants office yourself to make an appointment. You may need to arrange that through your insurance and/or your primary/family doctor. If you are unable to see the information technology consultant in 1 to 2 days, you must return to our emergency room (or any other ER of your choice) for re-assessment and re- evaluation. Adequate fluid hydration. Although you have been discharged from the Emergency Department, this does not mean that you have a "clean bill of health". No definitive diagnosis for your symptoms has been made today. It is possible that you are in the process of developing a serious illness. This is why you must return to the ED without fail if any new or worsening symptoms develop. Below is a copy of your radiological report for follow up: [address] [address] Ph: [phone] DIAGNOSTIC IMAGING Diagnostic Imaging Report : [id number] Signed PATIENT: LISA SHARP ACCT: [id number] UNIT: [id number] : 1970 LOC: ER ROOM / BED: / AGE / SEX: 54 / M ADM STATUS: REG ER SERVICE 6323 ORDERING PHYSICIAN: DMITRY RAI MD PROCEDURE(s): HWOCT - HEAD WITHOUT CONTRAST REASON: New onset worsening headache ORDER NUMBER(s): [id number], ACCESSION NUMBER(s): [id number] EXAM: CT HEAD WITHOUT CONTRAST INDICATION: New onset worsening headache TECHNIQUE: CT of the head without intravenous contrast. Radiation Dose Information: CT Dose: CTDI volume is 52.21 mGy. Dose-length product is 924.58 mGy*cm The dose indicators for CT are the volume Computed Tomography (CT) Dose Index (CTDIvol) and the Dose Length Product (DLP), and are measured in units of mGy and mGy-cm, respectively. These indicators are not patient dose, but values generated from the CT scanner acquisition factors. The report includes radiation exposure data for exposures received during this examination. COMPARISON: None FINDINGS: There is no evidence of acute intracranial hemorrhage, extra-axial collection, mass effect, midline shift, herniation or hydrocephalus. The ventricles, sulci and cisterns are age appropriate. The miller-white differentiation is intact. The visualized paranasal sinuses and mastoid air cells are clear. The surrounding soft tissues and osseous structures are unremarkable. IMPRESSION: 1. No acute intracranial abnormality. ATED BY: NAHOMI SHUKLA MD DICTATED DATE/TIME: 07/04/252213 SIGNED BY: NAHOMI SHUKLA MD SIGNED DATE/TIME: 07/04/252213 CC: [place] [address] Ph: [phone] DIAGNOSTIC IMAGING Diagnostic Imaging Report : [id number] Signed PATIENT: LISA SHARP ACCT: [id number] UNIT: [id number] : 1970 LOC: OVERFLOW ROOM / BED: [address] [place] [address] / AGE / SEX: 54 / M ADM STATUS: ADM IN SERVICE 9 ORDERING PHYSICIAN: FATOU POLANCO RESIDENT PROCEDURE(s): CARCL - CAROTID DUPLX W COLOR DOP REASON: CVA ORDER NUMBER(s): [id number], ACCESSION NUMBER(s): [id number] Carotid Duplex Date: 07/05/2025 07:38 AM Clinical History: CVA Comparison: None Technique: Duplex Doppler evaluation of the extracranial carotid and vertebral arteries including color Doppler and spectral/pulsed waveform analysis was performed. Findings: Velocities and ratios within normal limits IMPRESSION: No hemodynamically significant stenosis noted in the right carotid system. No hemodynamically significant stenosis noted in the left carotid system. Reference: Radiology 2003; [id number] ATED BY: NAHOMI SHUKLA MD DICTATED DATE/TIME: 07/05/25828 SIGNED BY: NAHOMI SHUKLA MD SIGNED DATE/TIME: 07/05/25828 CC: Discharged With: Self, Relative Critical Care Note Critical Care Time?: No I personally scribed for REX MORLEY DO ([email or web address]) on 07/10/25 at 12:24. Electronically submitted by Samia Pyle ([facility]). I personally scribed for REX MORLEY DO ([email or web address]) on 07/10/25 at 13:03. El ectronically submitted by Samia Pyle ([facility]). I personally scribed for REX MORLEY DO ([email or web address]) on 07/10/25 at 13:04. Elect ronically submitted by Samia Pyle ([facility]). I personally scribed for REX MORLEY DO ([email or web address]) on 07/10/25 at 13:12. Electronically submitted by Samia Pyle ([facility]). REX MORLEY DO Jul 10, 2025 12:24
[2025-07-10 13:12] VITALS: BP 108/64; PULSE 66; RESP 16; TEMP 98.8
[2025-07-10 13:13] VITALS: O2SAT 98
== END 2025-07-10 13:19 | disposition home or self-care (01) ==
LOC: ER 10:33
DX: R51.9 Headache, unspecified (principal); R42 Dizziness and giddiness